=== PATIENT | male | born 1965 | race African-American/Black ===

== ENCOUNTER 2017-11-21 10:19 | Inpatient (IN) | payer OTHER ==
[2017-11-21 12:13] VITALS: BMI 39.2
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
[2017-11-21] MEDS ORDERED: LOPERAMIDE HCL 2 MG CAPSULE PO PRN (16:47)
[2017-11-21] MEDS ORDERED: IBUPROFEN 400 MG TABLET (FP) PO PRN (16:47)
[2017-11-21] MEDS ORDERED: guaiFENesin/D-METHORPHAN HB 10 ML UNIT-DOSE CUPS PO PRN (16:47)
[2017-11-21] MEDS ORDERED: MENTHOL/PHENOL 1 EACH UD MM PRN (16:47)
[2017-11-21] MEDS ORDERED: P-EPHED 60MG/TRIPROLIDI 2.5MG TABLET PO PRN (16:47)
[2017-11-21] MEDS ORDERED: MAGNESIUM HYDROX 2400MG/30ML ORAL SUSPENSION 30 ML CUP PO PRN (16:47)
[2017-11-21] MEDS ORDERED: ACETAMINOPHEN 325 MG TABLET (FP) PO PRN (16:47)
[2017-11-21] MEDS ORDERED: chlordiazePOXIDE HCL 25 MG CAPSULE PO PRN (16:47)
[2017-11-21] MEDS ORDERED: MAGNESIUM CITRATE 300 ML BOTTLE PO PRN (16:47)
[2017-11-21] MEDS ORDERED: chlordiazePOXIDE HCL 25 MG CAPSULE PO ONE (17:15)
[2017-11-21 21:22] LABS: URINE APPEARANCE CLEAR; URINE BILIRUBIN NEGATIVE (NEGATIVE); URINE BLOOD NEGATIVE (NEGATIVE); URINE COLOR LTYELLOW; URINE GLUCOSE (UA) 3+ (NEGATIVE); URINE KETONE NEGATIVE (NEGATIVE); URINE LEUK ESTERASE NEGATIVE (NEGATIVE); URINE NITRITE NEGATIVE (NEGATIVE); URINE UROBILINOGEN NEGATIVE mg/dL (0.2-1.0)
[2017-11-21 21:27] LABS: URINE PROTEIN 2+ (NEGATIVE)
[2017-11-21 21:34] LABS: EPI CELLS RARE /HPF (FEW); URINE BACTERIA RARE /hpf (NONE SEEN); URINE MUCUS RARE
[2017-11-21] MEDS: ATORVASTATIN CA 40 MG TABLET (FP) PO SCH (22:12)
[2017-11-21] MEDS: chlordiazePOXIDE HCL 25 MG CAPSULE PO SCH (22:12)
[2017-11-21] MEDS: THIAMINE HCL 100 MG TABLET (FP) PO SCH (22:13)
[2017-11-21] MEDS ORDERED: metFORMIN HCL 500 MG TABLET (FP) PO ONE (23:15)
[2017-11-22] MEDS: chlordiazePOXIDE HCL 25 MG CAPSULE PO SCH ×4 (05:29→22:20)
[2017-11-22] MEDS: metFORMIN HCL 500 MG TABLET (FP) PO SCH ×2 (06:19→17:25)
[2017-11-22] MEDS: LIRAGLUTIDE 0.6 MG/0.1 ML PEN.INJCTR SQ SCH (08:31)
[2017-11-22] MEDS: PRENATAL VITAMINS W/ FOLIC ACID TABLET (FP) PO SCH (10:20)
[2017-11-22] MEDS: TOLNAFTATE 1% CREAM 15 GM TUBE TP SCH ×2 (10:20→22:21)
[2017-11-22] MEDS: ENALAPRIL MALEATE 5 MG TABLET (FP) PO SCH (10:22)
[2017-11-22 10:27] LABS: ALBUMIN 3.5 g/dl (3.4-5.0); ANION GAP 7 (8-16); BLOOD UREA NITROGEN 18 mg/dL (7-18); CALCIUM 8.9 mg/dL (8.5-10.1); CHLORIDE 106 mmol/L (98-107); CO2 29 mmol/L (21-32); GLUCOSE,RANDOM 217 mg/dL (74-106); POTASSIUM 4.4 mmol/L (3.5-5.1); SODIUM 142 mmol/L (136-145)
[2017-11-22 10:38] LABS: HEMATOCRIT 31.6 % (35.4-49); HEMOGLOBIN 9.8 GM/dL (11.7-16.9); MCH 27.5 pg (25.7-33.7); MEAN CELL VOLUME 88.6 fl (80-96); MEAN PLT VOLUME 11.2 fl (7.5-11.1); PLATELET COUNT 149 K/MM3 (134-434); RBC 3.56 M/mm3 (4.00-5.60); RDW 15.3 % (11.9-15.9); WHITE BLOOD COUNT 5.9 K/mm3 (4.0-10.0)
[2017-11-22 11:52] LABS: ALK PHOS 116 U/L (45-117); BILIRUBIN,TOTAL 0.5 mg/dL (0.2-1.0); CREATININE 1.6 mg/dL (0.7-1.3); SGOT/AST 23 U/L (15-37); TOT PROT 7.1 g/dl (6.4-8.2)
[2017-11-22 13:02] LABS: SGPT/ALT 66 U/L (12-78)
--- NOTE | 2017-11-22 14:25 | PN ---
S CIWA - CIWA Score Nausea/Vomitin Muscle Tremors: 2 Anxiety: 2 Agitation: 2 Paroxysmal Sweats: 3 Orientation: 0-Oriented Tacttile Disturbances: 2-Mild Itch/Numbness/Burn Auditory Disturbances: 0-None Visual Disturbances: 0-None Headache: 0-None Present CIWA-Ar Total Score: 13 BHS Progress Note (SOAP) Subjective: IS, sweat, shakes Objective: 11/22/17 14:24 Vital Signs Temperature 97.7 F 11/22/17 14:04 Pulse Rate 85 11/22/17 14:04 Respiratory Rate 18 11/22/17 14:04 Blood Pressure 141/85 11/22/17 14:04 O2 Sat by Pulse Oximetry (%) Laboratory Tests 11/21/17 11/21/17 11/21/17 13:49 17:00 18:13 WBC RBC Hgb Hct MCV MCH MCHC RDW Plt Count MPV Sodium Potassium Chloride Carbon Dioxide Anion Gap BUN Creatinine Creat Clearance w eGFR POC Glucometer 201 227 Random Glucose Calcium Total Bilirubin AST ALT Alkaline Phosphatase Total Protein Albumin Urine Color Ltyellow Urine Appearance Clear Urine pH 6.0 Ur Specific [place] 1.011 Urine Protein 2+ H Urine Glucose (UA) 3+ H Urine Ketones Negative Urine Blood Negative Urine Nitrite Negative Urine Bilirubin Negative Urine Urobilinogen Negative Ur Leukocyte Esterase Negative Urine WBC (Auto) 2 Urine RBC (Auto) <1 Ur Epithelial Cells Rare Urine Bacteria Rare Urine Mucus Rare RPR Titer 11/22/17 11/22/17 11/22/17 05:28 05:45 05:45 WBC 5.9 RBC 3.56 L Hgb 9.8 L Hct 31.6 L MCV 88.6 MCH 27.5 MCHC 31.0 L RDW 15.3 Plt Count 149 MPV 11.2 H Sodium 142 Potassium 4.4 Chloride 106 Carbon Dioxide 29 Anion Gap 7 L BUN 18 Creatinine 1.6 H Creat Clearance w eGFR 45.44 POC Glucometer 202 Random Glucose 217 H Calcium 8.9 Total Bilirubin 0.5 AST 23 ALT 66 Alkaline Phosphatase 116 Total Protein 7.1 Albumin 3.5 Urine Color Urine Appearance Urine pH Ur Specific [place] Urine Protein Urine Glucose (UA) Urine Ketones Urine Blood Urine Nitrite Urine Bilirubin Urine Urobilinogen Ur Leukocyte Esterase Urine WBC (Auto) Urine RBC (Auto) Ur Epithelial Cells Urine Bacteria Urine Mucus RPR Titer 11/22/17 05:45 WBC RBC Hgb Hct MCV MCH MCHC RDW Plt Count MPV Sodium Potassium Chloride Carbon Dioxide Anion Gap BUN Creatinine Creat Clearance w eGFR POC Glucometer Random Glucose Calcium Total Bilirubin AST ALT Alkaline Phosphatase Total Protein Albumin Urine Color Urine Appearance Urine pH Ur Specific [place] Urine Protein Urine Glucose (UA) Urine Ketones Urine Blood Urine Nitrite Urine Bilirubin Urine Urobilinogen Ur Leukocyte Esterase Urine WBC (Auto) Urine RBC (Auto) Ur Epithelial Cells Urine Bacteria Urine Mucus RPR Titer Nonreactive pt aox3 in nad ambulating Assessment: 11/22/17 14:24 withdrawal sx's dm htn elevated creatinine 11/22/17 14:24 Plan: cont. detox fluids daily bgm
[2017-11-22] MEDS: ATORVASTATIN CA 40 MG TABLET (FP) PO SCH (22:19)
[2017-11-22] MEDS: THIAMINE HCL 100 MG TABLET (FP) PO SCH (22:20)
[2017-11-23 01:05] LABS: SICKLE CELL SCREEN NEGATIVE (NEGATIVE)
[2017-11-23] MEDS: chlordiazePOXIDE HCL 25 MG CAPSULE PO SCH ×3 (05:43→17:37)
[2017-11-23] MEDS: MAG HYDROX/AL HYDROX/SIMETH 30 ML UNIT-DOSE CUP PO PRN ×2 (05:43→20:49)
[2017-11-23] MEDS ORDERED: INSULIN (NOVOLOG) ASPART 100 UNITS/ML 10ML VIAL ONE ×2 (06:27→17:36)
[2017-11-23] MEDS: metFORMIN HCL 500 MG TABLET (FP) PO SCH ×2 (06:54→17:30)
[2017-11-23] MEDS: LIRAGLUTIDE 0.6 MG/0.1 ML PEN.INJCTR SQ SCH (06:56)
[2017-11-23] MEDS: INSULIN SLIDING SCALE (NOVOLOG) 1 VIAL SQ SCH ×2 (06:56→17:33)
--- NOTE | 2017-11-23 09:52 | PN ---
S CIWA - CIWA Score Nausea/Vomitin-No Nausea/No Vomiting Muscle Tremors: 3 Anxiety: 2 Agitation: 2 Paroxysmal Sweats: 1-Minimal Palms Moist Orientation: 0-Oriented Tacttile Disturbances: 0-None Auditory Disturbances: 0-None Visual Disturbances: 0-None Headache: 0-None Present CIWA-Ar Total Score: 8 BHS Progress Note (SOAP) Subjective: tremor sweat anxiety Objective: 11/23/17 09:51 Vital Signs Temperature 98.1 F 11/23/17 09:34 Pulse Rate 92 H 11/23/17 09:34 Respiratory Rate 20 11/23/17 09:34 Blood Pressure 139/83 11/23/17 09:34 O2 Sat by Pulse Oximetry (%) Laboratory Last Values WBC 5.9 K/mm3 (4.0-10.0) 11/22/17 05:45 RBC 3.56 M/mm3 (4.00-5.60) L 11/22/17 05:45 Hgb 9.8 GM/dL (11.7-16.9) L 11/22/17 05:45 Hct 31.6 % (35.4-49) L 11/22/17 05:45 MCV 88.6 fl (80-96) 11/22/17 05:45 MCH 27.5 pg (25.7-33.7) 11/22/17 05:45 MCHC 31.0 g/dl (32.0-35.9) L 11/22/17 05:45 RDW 15.3 % (11.9-15.9) 11/22/17 05:45 Plt Count 149 K/MM3 (134-434) 11/22/17 05:45 MPV 11.2 fl (7.5-11.1) H 11/22/17 05:45 Sickle Cell Screen Negative (NEGATIVE) 11/22/17 05:45 Sodium 142 mmol/L (136-145) 11/22/17 05:45 Potassium 4.4 mmol/L (3.5-5.1) 11/22/17 05:45 Chloride 106 mmol/L (98-107) 11/22/17 05:45 Carbon Dioxide 29 mmol/L (21-32) 11/22/17 05:45 Anion Gap 7 (8-16) L 11/22/17 05:45 BUN 18 mg/dL (7-18) 11/22/17 05:45 Creatinine 1.6 mg/dL (0.7-1.3) H 11/22/17 05:45 Creat Clearance w eGFR 45.44 (>60) 11/22/17 05:45 POC Glucometer 337 UNITS (80-120) 11/23/17 05:42 Random Glucose 217 mg/dL (74-106) H 11/22/17 05:45 Calcium 8.9 mg/dL (8.5-10.1) 11/22/17 05:45 Total Bilirubin 0.5 mg/dL (0.2-1.0) 11/22/17 05:45 AST 23 U/L (15-37) 11/22/17 05:45 ALT 66 U/L (12-78) 11/22/17 05:45 Alkaline Phosphatase 116 U/L (45-117) 11/22/17 05:45 Total Protein 7.1 g/dl (6.4-8.2) 11/22/17 05:45 Albumin 3.5 g/dl (3.4-5.0) 11/22/17 05:45 Urine Color Ltyellow 11/21/17 17:00 Urine Appearance Clear 11/21/17 17:00 Urine pH 6.0 (5.0-8.0) 11/21/17 17:00 Ur Specific [place] 1.011 (1.001-1.035) 11/21/17 17:00 Urine Protein 2+ (NEGATIVE) H 11/21/17 17:00 Urine Glucose (UA) 3+ (NEGATIVE) H 11/21/17 17:00 Urine Ketones Negative (NEGATIVE) 11/21/17 17:00 Urine Blood Negative (NEGATIVE) 11/21/17 17:00 Urine Nitrite Negative (NEGATIVE) 11/21/17 17:00 Urine Bilirubin Negative (NEGATIVE) 11/21/17 17:00 Urine Urobilinogen Negative mg/dL (0.2-1.0) 11/21/17 17:00 Ur Leukocyte Esterase Negative (NEGATIVE) 11/21/17 17:00 Urine WBC (Auto) 2 /hpf (3-5) 11/21/17 17:00 Urine RBC (Auto) <1 /hpf (0-3) 11/21/17 17:00 Ur Epithelial Cells Rare /HPF (FEW) 11/21/17 17:00 Urine Bacteria Rare /hpf (NONE SEEN) 11/21/17 17:00 Urine Mucus Rare 11/21/17 17:00 RPR Titer Nonreactive (NONREACTIVE) 11/22/17 05:45 lab noted Assessment: 11/23/17 09:51 withdrawal sx Plan: continue detox
[2017-11-23] MEDS: ENALAPRIL MALEATE 5 MG TABLET (FP) PO SCH (10:21)
[2017-11-23] MEDS: PRENATAL VITAMINS W/ FOLIC ACID TABLET (FP) PO SCH (10:21)
[2017-11-23] MEDS: TOLNAFTATE 1% CREAM 15 GM TUBE TP SCH ×2 (10:21→22:47)
[2017-11-23] MEDS: ATORVASTATIN CA 40 MG TABLET (FP) PO SCH (22:45)
[2017-11-23] MEDS: chlordiazePOXIDE 5 MG CAPSULE PO SCH (22:45)
[2017-11-23] MEDS: THIAMINE HCL 100 MG TABLET (FP) PO SCH (22:47)
[2017-11-24] MEDS: chlordiazePOXIDE 5 MG CAPSULE PO SCH ×3 (06:03→17:04)
[2017-11-24] MEDS: metFORMIN HCL 500 MG TABLET (FP) PO SCH ×2 (06:08→16:59)
[2017-11-24] MEDS ORDERED: INSULIN (NOVOLOG) ASPART 100 UNITS/ML 10ML VIAL ONE ×2 (06:10→16:56)
[2017-11-24] MEDS: INSULIN SLIDING SCALE (NOVOLOG) 1 VIAL SQ SCH ×2 (06:11→16:52)
[2017-11-24] MEDS ORDERED: ONDANSETRON *ODT* 4 MG TABLET SL PRN (09:32)
[2017-11-24] MEDS ORDERED: ONDANSETRON *ODT* 4 MG TABLET SL ONE (09:32)
--- NOTE | 2017-11-24 09:37 | PN ---
BHS Progress Note (SOAP) Subjective: [place], sweats, interrupted sleep, anxiety, tremors Objective: 11/24/17 09:34 Vital Signs - 8 hr 11/24/17 11/24/17 11/24/17 03:30 06:46 09:22 Temperature 98.1 F 97.7 F Pulse Rate 79 81 Respiratory 18 19 18 Rate Blood Pressure 128/77 138/88 Laboratory Tests 11/21/17 11/21/17 11/21/17 13:49 17:00 18:13 WBC RBC Hgb Hct MCV MCH MCHC RDW Plt Count MPV Sickle Cell Screen Sodium Potassium Chloride Carbon Dioxide Anion Gap BUN Creatinine Creat Clearance w eGFR POC Glucometer 201 227 Random Glucose Calcium Total Bilirubin AST ALT Alkaline Phosphatase Total Protein Albumin Urine Color Ltyellow Urine Appearance Clear Urine pH 6.0 Ur Specific [place] 1.011 Urine Protein 2+ H Urine Glucose (UA) 3+ H Urine Ketones Negative Urine Blood Negative Urine Nitrite Negative Urine Bilirubin Negative Urine Urobilinogen Negative Ur Leukocyte Esterase Negative Urine WBC (Auto) 2 Urine RBC (Auto) <1 Ur Epithelial Cells Rare Urine Bacteria Rare Urine Mucus Rare RPR Titer 11/22/17 11/22/17 11/22/17 05:28 05:45 05:45 WBC 5.9 RBC 3.56 L Hgb 9.8 L Hct 31.6 L MCV 88.6 MCH 27.5 MCHC 31.0 L RDW 15.3 Plt Count 149 MPV 11.2 H Sickle Cell Screen Negative Sodium 142 Potassium 4.4 Chloride 106 Carbon Dioxide 29 Anion Gap 7 L BUN 18 Creatinine 1.6 H Creat Clearance w eGFR 45.44 POC Glucometer 202 Random Glucose 217 H Calcium 8.9 Total Bilirubin 0.5 AST 23 ALT 66 Alkaline Phosphatase 116 Total Protein 7.1 Albumin 3.5 Urine Color Urine Appearance Urine pH Ur Specific [place] Urine Protein Urine Glucose (UA) Urine Ketones Urine Blood Urine Nitrite Urine Bilirubin Urine Urobilinogen Ur Leukocyte Esterase Urine WBC (Auto) Urine RBC (Auto) Ur Epithelial Cells Urine Bacteria Urine Mucus RPR Titer 11/22/17 11/22/17 11/23/17 05:45 16:34 05:42 WBC RBC Hgb Hct MCV MCH MCHC RDW Plt Count MPV Sickle Cell Screen Sodium Potassium Chloride Carbon Dioxide Anion Gap BUN Creatinine Creat Clearance w eGFR POC Glucometer 329 337 Random Glucose Calcium Total Bilirubin AST ALT Alkaline Phosphatase Total Protein Albumin Urine Color Urine Appearance Urine pH Ur Specific [place] Urine Protein Urine Glucose (UA) Urine Ketones Urine Blood Urine Nitrite Urine Bilirubin Urine Urobilinogen Ur Leukocyte Esterase Urine WBC (Auto) Urine RBC (Auto) Ur Epithelial Cells Urine Bacteria Urine Mucus RPR Titer Nonreactive 11/23/17 11/23/17 11/24/17 16:46 22:44 06:05 WBC RBC Hgb Hct MCV MCH MCHC RDW Plt Count MPV Sickle Cell Screen Sodium Potassium Chloride Carbon Dioxide Anion Gap BUN Creatinine Creat Clearance w eGFR POC Glucometer 392 396 314 Random Glucose Calcium Total Bilirubin AST ALT Alkaline Phosphatase Total Protein Albumin Urine Color Urine Appearance Urine pH Ur Specific [place] Urine Protein Urine Glucose (UA) Urine Ketones Urine Blood Urine Nitrite Urine Bilirubin Urine Urobilinogen Ur Leukocyte Esterase Urine WBC (Auto) Urine RBC (Auto) Ur Epithelial Cells Urine Bacteria Urine Mucus RPR Titer anemia, hyperglycemia, dehydration Assessment: 11/24/17 09:35 withdrawal sx, cont detox, uncontrolled dm and dehydration, diabetic diet, control dm, fluids, encourage ambulation
[2017-11-24] MEDS: PRENATAL VITAMINS W/ FOLIC ACID TABLET (FP) PO SCH (10:15)
[2017-11-24] MEDS: ENALAPRIL MALEATE 5 MG TABLET (FP) PO SCH (10:15)
[2017-11-24] MEDS: TOLNAFTATE 1% CREAM 15 GM TUBE TP SCH ×2 (10:16→22:25)
[2017-11-24] MEDS ORDERED: LIRAGLUTIDE 0.6 MG/0.1 ML PEN.INJCTR SQ SCH (22:00)
[2017-11-24] MEDS: THIAMINE HCL 100 MG TABLET (FP) PO SCH (22:23)
[2017-11-24] MEDS: chlordiazePOXIDE HCL 10 MG CAPSULE PO SCH (22:24)
[2017-11-24] MEDS: ATORVASTATIN CA 40 MG TABLET (FP) PO SCH (22:24)
[2017-11-25] MEDS: chlordiazePOXIDE HCL 10 MG CAPSULE PO SCH (05:50)
[2017-11-25 06:41] VITALS: BP 111/58; PULSE 80; TEMP 97.7
[2017-11-25] MEDS: INSULIN SLIDING SCALE (NOVOLOG) 1 VIAL SQ SCH (07:33)
[2017-11-25] MEDS: metFORMIN HCL 500 MG TABLET (FP) PO SCH (07:33)
--- NOTE | 2017-11-25 11:19 | DS ---
[facility] Detox Discharge Summary Admission Date: 11/21/17 Discharge Date: 11/25/17 - History Pertinent Past History: HTN DM type 2 High chol Anemia - Physical Exam Results Vital Signs: Vital Signs Temperature 97.7 F 11/25/17 06:00 Pulse Rate 80 11/25/17 06:00 Respiratory Rate 20 11/25/17 06:00 Blood Pressure 111/58 11/25/17 06:00 O2 Sat by Pulse Oximetry (%) Pertinent Admission Physical Exam Findings: Laboratory Last Values WBC 5.9 K/mm3 (4.0-10.0) 11/22/17 05:45 RBC 3.56 M/mm3 (4.00-5.60) L 11/22/17 05:45 Hgb 9.8 GM/dL (11.7-16.9) L 11/22/17 05:45 Hct 31.6 % (35.4-49) L 11/22/17 05:45 MCV 88.6 fl (80-96) 11/22/17 05:45 MCH 27.5 pg (25.7-33.7) 11/22/17 05:45 MCHC 31.0 g/dl (32.0-35.9) L 11/22/17 05:45 RDW 15.3 % (11.9-15.9) 11/22/17 05:45 Plt Count 149 K/MM3 (134-434) 11/22/17 05:45 MPV 11.2 fl (7.5-11.1) H 11/22/17 05:45 Sickle Cell Screen Negative (NEGATIVE) 11/22/17 05:45 Sodium 142 mmol/L (136-145) 11/22/17 05:45 Potassium 4.4 mmol/L (3.5-5.1) 11/22/17 05:45 Chloride 106 mmol/L (98-107) 11/22/17 05:45 Carbon Dioxide 29 mmol/L (21-32) 11/22/17 05:45 Anion Gap 7 (8-16) L 11/22/17 05:45 BUN 18 mg/dL (7-18) 11/22/17 05:45 Creatinine 1.6 mg/dL (0.7-1.3) H 11/22/17 05:45 Creat Clearance w eGFR 45.44 (>60) 11/22/17 05:45 POC Glucometer 322 UNITS (80-120) 11/25/17 05:53 Random Glucose 217 mg/dL (74-106) H 11/22/17 05:45 Calcium 8.9 mg/dL (8.5-10.1) 11/22/17 05:45 Total Bilirubin 0.5 mg/dL (0.2-1.0) 11/22/17 05:45 AST 23 U/L (15-37) 11/22/17 05:45 ALT 66 U/L (12-78) 11/22/17 05:45 Alkaline Phosphatase 116 U/L (45-117) 11/22/17 05:45 Total Protein 7.1 g/dl (6.4-8.2) 11/22/17 05:45 Albumin 3.5 g/dl (3.4-5.0) 11/22/17 05:45 Urine Color Ltyellow 11/21/17 17:00 Urine Appearance Clear 11/21/17 17:00 Urine pH 6.0 (5.0-8.0) 11/21/17 17:00 Ur Specific [place] 1.011 (1.001-1.035) 11/21/17 17:00 Urine Protein 2+ (NEGATIVE) H 11/21/17 17:00 Urine Glucose (UA) 3+ (NEGATIVE) H 11/21/17 17:00 Urine Ketones Negative (NEGATIVE) 11/21/17 17:00 Urine Blood Negative (NEGATIVE) 11/21/17 17:00 Urine Nitrite Negative (NEGATIVE) 11/21/17 17:00 Urine Bilirubin Negative (NEGATIVE) 11/21/17 17:00 Urine Urobilinogen Negative mg/dL (0.2-1.0) 11/21/17 17:00 Ur Leukocyte Esterase Negative (NEGATIVE) 11/21/17 17:00 Urine WBC (Auto) 2 /hpf (3-5) 11/21/17 17:00 Urine RBC (Auto) <1 /hpf (0-3) 11/21/17 17:00 Ur Epithelial Cells Rare /HPF (FEW) 11/21/17 17:00 Urine Bacteria Rare /hpf (NONE SEEN) 11/21/17 17:00 Urine Mucus Rare 11/21/17 17:00 RPR Titer Nonreactive (NONREACTIVE) 11/22/17 05:45 - Treatment Hospital Course: Detox Protocol Followed, Detoxed Safely, Responded well, Discharged Condition Good Patient has Accepted a Rehab Referral to: Eliu f/u with [facility] meetings - Medication Discharge Medications: Ambulatory Orders Liraglutide [Victoza -] 0.6 mg SQ DAILY@0700 11/21/17 Multivitamin,Therapeutic [Thera] 1 tab PO DAILY 11/21/17 Atorvastatin Calcium 40 mg PO HS #30 tablet 11/24/17 Enalapril Maleate [Vasotec -] 5 mg PO DAILY #30 tablet 11/24/17 Metformin HCl [Glucophage -] 1,000 mg PO BID #60 tablet 11/24/17 - Diagnosis (1) Alcohol dependence with uncomplicated withdrawal Current Visit: Yes Status: Chronic (2) Cocaine dependence, uncomplicated Current Visit: Yes Status: Chronic (3) History of hypercholesterolemia Current Visit: Yes Status: Chronic (4) Hypertension Current Visit: Yes Status: Chronic Qualifiers: Hypertension type: essential hypertension Qualified Code(s): I10 - Essential (primary) hypertension (5) Type 2 diabetes mellitus Current Visit: Yes Status: Chronic Qualifiers: Diabetes mellitus complication status: without complication (6) History of anemia Current Visit: Yes Status: Suspected - AMA Did Patient Leave Against Medical Advice: No
== END 2017-11-25 09:52 | disposition home or self-care (01) | DRG 774 ==
LOC: YASAS 10:19 → Y6N 15:14
PROVIDERS: ADMIT Internal Medicine; ATTEND Internal Medicine
PROC: HZ2ZZZZ Detoxification Services for Substance Abuse Treatment (ICD-10-PCS; principal; 2017-11-21)
DX: F10.230 Alcohol dependence with withdrawal, uncomplicated (principal); F14.20 Cocaine dependence, uncomplicated; I10 Essential (primary) hypertension; E78.00 Pure hypercholesterolemia, unspecified; E11.65 Type 2 diabetes mellitus with hyperglycemia; E86.0 Dehydration; D64.9 Anemia, unspecified; R79.89 Other specified abnormal findings of blood chemistry; Z79.84 Long term (current) use of oral hypoglycemic drugs; Z87.891 Personal history of nicotine dependence
CPT/HCPCS: 36415; 80053; 81003; 81015; 82962; 85027; 85660; 86593; 93005; 93010